=== PATIENT | male | born 1940 | race Caucasian/White ===

== ENCOUNTER 2021-01-03 16:05 | Emergency (ER) | payer OTHER ==
[~2021-01-03] VITALS: Ht 170.2 cm; Wt 77.3 kg
[2021-01-03 16:18] VITALS: TEMP 97.7
[2021-01-03 17:16] LABS: COLLECTION METHOD CATHETER
[2021-01-03 17:23] LABS: BASO % 0.4 % (0.0-2.0); EOS # 0.1 (0.0-0.7); EOS % 0.8 % (0-4.0); GRAN # 5.7 (1.4-6.5); GRAN % 75.4 % (42.2-75.2); HEMATOCRIT 39.8 % (42.0-52.0); HEMOGLOBIN 13.3 g/dl (13.5-18.0); LYMPH % 12.6 % (20.0-51.0); MEAN CELL VOLUME 92 fl (80.0-100.0); MEAN CORPUSCULAR HEMOGLOBIN 31 pg (27.0-31.0); MEAN CORPUSCULAR HGB CONC 33 g/dl (33.0-37.0); MEAN PLATELET VOLUME 10.7 fl (7.4-10.4); MONO # 0.8 (0.1-0.6); MONO % 10.5 % (1.7-9.3); PLATELET COUNT 240 K/mm3 (130-400); RED BLOOD COUNT 4.35 M/mm3 (4.20-5.60); REDCELL DISTRIBUTION WIDTH-CV 13.2 % (11.5-14.5)
[2021-01-03 17:31] LABS: BILIRUBIN,TOTAL 0.8 mg/dL (0.0-1.0); C-REACTIVE PROTEIN 1.1 mg/dL (0.0-0.9); CALCIUM 9.1 mg/dL (8.4-10.2); CREATININE, serum 0.94 (0.66-1.25)
[2021-01-03 17:37] LABS: MUCOUS Present /lpf; PH 5 (5-8); SQUAMOUS EPITHELIAL None Seen /hpf; URINE APPEARANCE Clear; URINE BACTERIA None Seen /hpf; URINE BILIRUBIN Negative (NEGATIVE); URINE BLOOD 3+ (NEGATIVE); URINE COLOR Yellow; URINE GLUCOSE 3+ (NEGATIVE); URINE KETONE 1+ (NEGATIVE); URINE LEUKOCYTE ESTERASE Negative (NEGATIVE); URINE NITRATE Negative (NEGATIVE); URINE PROTEIN(semi-quant) 2+ (NEGATIVE); URINE RBC 20-50 /hpf; URINE UROBILINOGEN Negative (NEGATIVE)
[2021-01-03] MEDS ORDERED: CIPRO 500MG TA500 MG PO (18:29)
[2021-01-03 19:17] VITALS: BP 149/76; PULSE 85
== END 2021-01-03 19:17 | disposition home or self-care (01) ==
LOC: COL.ER 16:05
PROVIDERS: Nurse Practitioner
DX: R33.9 Retention of urine, unspecified (principal); T83.098A Other mechanical complication of other urinary catheter, initial encounter
CPT/HCPCS: J7030

== ENCOUNTER → 2022-02-09 | Outpatient (CLI) | payer OTHER ==
[~2022-02-09] MED LIST: CIPRO 500MG TA500 MG PO
== END ==
LOC: COL.RAD 12:31
DX: Z01.89 Encounter for other specified special examinations (principal); N28.1 Cyst of kidney, acquired

== ENCOUNTER → 2022-02-20 | Outpatient (CLI) | payer OTHER | LOC: COL.RAD 02-15 07:30 | DX: Z01.89 Encounter for other specified special examinations (principal); N32.9 Bladder disorder, unspecified; K57.30 Diverticulosis of large intestine without perforation or abscess without bleeding; K63.9 Disease of intestine, unspecified; K44.9 Diaphragmatic hernia without obstruction or gangrene; K40.90 Unilateral inguinal hernia, without obstruction or gangrene, not specified as recurrent | CPT/HCPCS: Q9967 ==